=== PATIENT | female | born 1975 | race Caucasian/White ===

== ENCOUNTER 2019-06-05 21:05 | Emergency (ER) | payer BC ==
[2019-06-05 21:52] LABS: ANION GAP 22.6; CHLORIDE,CL 99 mmol/L (101-111); SODIUM,NA 136 mmol/L (135-145)
[2019-06-05 21:55] LABS: ACETAMINOPHEN < 10 ug/mL
[2019-06-05] MEDS ORDERED: Sodium Chloride 0.9% 1,000 ML IV ONE (22:53)
--- NOTE | 2019-06-06 00:21 | EDM.PDOC ---
ED HPI GENERAL MEDICAL PROBLEM - General Chief Complaint: Neurological Problem Stated Complaint: AMB Time Seen by Provider: 06/05/19 21:15 Source of Information: Reports: Patient, EMS, Family History Limitations: Reports: No Limitations - History of Present Illness INITIAL COMMENTS - FREE TEXT/NARRATIVE: This 43 yo female patient was brought to the ED by [facility] due to a possible seizure. EMS reported the patient was found on the ground in the garage. Initially, the patient was disoriented. As soon as the patient was loaded on the ambulance cot, she was able to answer questions appropriately. The patient' s family reports the patient is in [place] for her mother's . The patient was assisting with making food for the family when she suddenly fell to her knees, then to the floor. The family reports the patient's hands were shaking when she was on the floor and the patient started to turn blue. The patient initially could not respond to family, but became responsive as soon as the ambulance had loaded the patient on the cot. The patient has no history of seizures and no family history of seizures. The patient reports she has been drinking more caffeine than normal and has not been sleeping well due to dealing with the loss. Onset: Today Duration: Minutes:, Resolved Prior to Arrival Location: Reports: Generalized Quality: Reports: Other Severity: Moderate Improves with: Reports: None Worsens with: Reports: None Context: Reports: Other Associated Symptoms: Reports: No Other Symptoms Right Elbow Pain Score (Numeric/FACES): 0 - Related Data Allergies Allergy/AdvReac Type Severity Reaction Status Date / Time lisinopril Allergy Anaphylactic Verified 06/05/19 21:36 Shock strawberry Allergy Hives Verified 06/05/19 21:36 Sulfa (Sulfonamide Allergy Nausea and Verified 06/05/19 21:36 Antibiotics) Vomiting Past Medical History Cardiovascular History: Reports: Hypertension Endocrine/Metabolic History: Reports: Hypothyroidism - Past Surgical History GI Surgical History: Reports: Cholecystectomy Other Female Surgeries/Procedures: Uterine Ablation May 2019 Social & Family History - Family History Family Medical History: Noncontributory - Tobacco Use Smoking Status *Q: Never Smoker Second Hand Smoke Exposure: No - Alcohol Use Date of Last Drink: 06/05/19 - Recreational Drug Use Recreational Drug Use: No ED ROS GENERAL - Review of Systems Review Of Systems: Comprehensive ROS is negative, except as noted in HPI. - Physical Exam Exam: See Below Exam Limited By: No Limitations General Appearance: Alert, WD/WN, No Apparent Distress Eye Exam: Bilateral Eye: EOMI, Normal Inspection, PERRL Ears: Normal External Exam, Normal Canal, Hearing Grossly Normal, Normal TMs Nose: Normal Inspection, Normal Mucosa, No Blood Throat/Mouth: Normal Inspection, Normal Lips, Normal Teeth, Normal Gums, Normal Oropharynx, Normal Voice, No Airway Compromise Head Exam: Atraumatic, Normocephalic Neck: Normal Inspection, Supple, Non-Tender, Full Range of Motion Respiratory/Chest: No Respiratory Distress, Lungs Clear, Normal Breath Sounds, No Accessory Muscle Use, Chest Non-Tender Cardiovascular: Normal Peripheral Pulses, Regular Rate, Rhythm, No Edema, No Gallop, No JVD, No Murmur, No Rub GI/Abdominal: Normal Bowel Sounds, Soft, Non-Tender, No Organomegaly, No Distention, No Abnormal Bruit, No Mass (Female) Exam: Deferred Rectal (Female) Exam: Deferred Neuro Exam (Abbreviated): Alert, Oriented, CN II-XII Intact, Normal Cognition, Normal Gait, Normal Reflexes, No Motor/Sensory Deficits Back Exam: Normal Inspection, Full Range of Motion, NT Extremities: Normal Inspection, Normal Range of Motion, Non-Tender, No Pedal Edema, Normal Capillary Refill Psychiatric: Normal Affect, Normal Mood Skin Exam: Warm, Dry, Intact, Normal Color, No Rash Course - Vital Signs Last Recorded V/S: Last Vital Signs Temp 36.0 C L 06/05/19 21:10 Pulse 76 06/06/19 00:05 Resp 18 06/06/19 00:05 BP 143/84 H 06/06/19 00:05 Pulse Ox 100 06/06/19 00:05 - Orders/Labs/Meds Orders: Active Orders 24 hr Category Date Time Status Head wo Cont [CT] Urgent Exams 06/05/19 21:39 Ordered CULTURE BLOOD [BC] Stat Lab 06/05/19 21:14 Ordered DRUG SCREEN, URINE [URCHEM] Stat Lab 06/05/19 21:14 Ordered UA RFX MARINA AND CULT IF INDIC [URIN] Urgent Lab 06/05/19 21:14 Ordered Labs: Laboratory Tests 06/05/19 06/05/19 06/05/19 Range/Units 21:24 21:24 21:24 WBC 3.5 L (5.0-10.0) 10^3/uL RBC 3.80 L (4.2-5.4) 10^6/uL Hgb 13.8 (12.0-16.0) g/dL Hct 40.6 (37.0-47.0) % MCV 106.8 H (80-100) fL MCH 36.3 H (27.0-34.0) pg MCHC 34.0 (33.0-35.0) g/dL Plt Count 117 L (150-450) 10^3/uL Neut % (Auto) 54.2 (42.2-75.2) % Lymph % (Auto) 29.7 (20.5-50.1) % [place] % (Auto) 13.5 H (2-8) % Eos % (Auto) 1.7 (1.0-3.0) % Baso % (Auto) 0.9 (0.0-1.0) % Sodium 136 (135-145) mmol/L Potassium 3.6 (3.6-5.0) mmol/L Chloride 99 L (101-111) mmol/L Carbon Dioxide 18.0 L (21.0-31.0) mmol/L Anion Gap 22.6 BUN 13 (7-18) mg/dL Creatinine 0.9 (0.6-1.3) mg/dL Est Cr Clr Drug Dosing 71.78 mL/min Estimated GFR (MDRD) > 60 BUN/Creatinine Ratio 14.44 Glucose 137 H (74-105) mg/dL Lactic Acid (0.5-2.0) mmol/L Calcium 9.5 (8.4-10.2) mg/dl Total Bilirubin 1.1 H (0.2-1.0) mg/dL AST 101 H (10-42) IU/L ALT 63 H (10-60) IU/L Alkaline Phosphatase 61 (42-121) IU/L Ammonia 28 (11-35) umol/L Total Protein 7.6 (6.7-8.2) g/dl Albumin 4.6 (3.2-5.5) g/dl Globulin 3.0 Albumin/Globulin Ratio 1.53 Salicylates < 4 mg/dL Acetaminophen < 10 ug/mL Ethyl Alcohol < 5 mg/dL 06/05/19 Range/Units 21:24 WBC (5.0-10.0) 10^3/uL RBC (4.2-5.4) 10^6/uL Hgb (12.0-16.0) g/dL Hct (37.0-47.0) % MCV (80-100) fL MCH (27.0-34.0) pg MCHC (33.0-35.0) g/dL Plt Count (150-450) 10^3/uL Neut % (Auto) (42.2-75.2) % Lymph % (Auto) (20.5-50.1) % [place] % (Auto) (2-8) % Eos % (Auto) (1.0-3.0) % Baso % (Auto) (0.0-1.0) % Sodium (135-145) mmol/L Potassium (3.6-5.0) mmol/L Chloride (101-111) mmol/L Carbon Dioxide (21.0-31.0) mmol/L Anion Gap BUN (7-18) mg/dL Creatinine (0.6-1.3) mg/dL Est Cr Clr Drug Dosing mL/min Estimated GFR (MDRD) BUN/Creatinine Ratio Glucose (74-105) mg/dL Lactic Acid 7.4 H* (0.5-2.0) mmol/L Calcium (8.4-10.2) mg/dl Total Bilirubin (0.2-1.0) mg/dL AST (10-42) IU/L ALT (10-60) IU/L Alkaline Phosphatase (42-121) IU/L Ammonia (11-35) umol/L Total Protein (6.7-8.2) g/dl Albumin (3.2-5.5) g/dl Globulin Albumin/Globulin Ratio Salicylates mg/dL Acetaminophen ug/mL Ethyl Alcohol mg/dL Meds: Medications Discontinued Medications Generic Name Dose Route Start Last Admin Trade Name Freq PRN Reason Stop Dose Admin Sodium Chloride 1,000 mls @ 999 mls/hr 06/05/19 22:53 06/05/19 22:57 Normal Saline IV 06/05/19 23:53 999 mls/hr .BOLUS ONE Administration Departure - Departure Time of Disposition: 00:18 Disposition: Home, Self-Care 01 Condition: Fair Clinical Impression: Seizure - Discharge Information *PRESCRIPTION DRUG MONITORING PROGRAM REVIEWED*: Not Applicable *COPY OF PRESCRIPTION DRUG MONITORING REPORT IN PATIENT VIELKA: Not Applicable Instructions: Seizure, Adult, [id number] Forms: ED Department Discharge Care Plan Goals: The patient and family were advised of the examination, lab and CT results during the visit. A consultation with Neurology was done during the visit with Dr. Monk (Neurologist with [facility] in [place]). Dr. Monk advised that the patient take it easy for the next couple of days and follow-up as an outpatient with Neurology. If the patient has any additional symptoms or concerns, the patient should either return to the emergency department or visit her primary care facility. Sepsis Event Note - Evaluation Sepsis Screening Result: No Definite Risk - Focused Exam Vital Signs: Vital Signs Temp Pulse Resp BP Pulse Ox 06/06/19 00:05 76 18 143/84 H 100 06/05/19 21:49 106 H 17 136/78 100 06/05/19 21:10 36.0 C L 121 H 23 H 168/91 H 98 Date Exam was Performed: 06/06/19 Time Exam was Performed: 00:23 - My Orders Last 24 Hours: My Active Orders 06/05/19 21:14 CULTURE BLOOD [BC] Stat DRUG SCREEN, URINE [URCHEM] Stat UA RFX MARINA AND CULT IF INDIC [URIN] Urgent 06/05/19 21:39 Head wo Cont [CT] Urgent - Assessment/Plan Last 24 Hours: My Active Orders 06/05/19 21:14 CULTURE BLOOD [BC] Stat DRUG SCREEN, URINE [URCHEM] Stat UA RFX MARINA AND CULT IF INDIC [URIN] Urgent 06/05/19 21:39 Head wo Cont [CT] Urgent
== END 2019-06-06 00:25 | disposition home or self-care (01) ==
LOC: DL.ED 21:05
DX: R56.9 Unspecified convulsions (principal); I10 Essential (primary) hypertension; Z88.2 Allergy status to sulfonamides; Z88.8 Allergy status to other drugs, medicaments and biological substances; Z91.018 Allergy to other foods
CPT/HCPCS: 36415; 70450; 80053; 80307; 82140; 83605; 85025; 87040; 96360; 99285; J7030